=== PATIENT | female | born 1935 | race Caucasian/White ===

== ENCOUNTER 2019-10-22 07:03 | Day surgery (SDC) | payer MEDICARE | END 2019-10-22 23:08 | disposition home or self-care (01) | LOC: MOI US 07:03 | DX: R59.0 Localized enlarged lymph nodes (principal) | CPT/HCPCS: 38505; 76882; 76942; A4648 ==

== ENCOUNTER 2019-11-18 05:48 | Day surgery (SDC) | payer MEDICARE ==
[~2019-11-18] VITALS: Ht 175.3 cm; Wt 91.2 kg
[~2019-11-18 05:48] MED LIST: AMLO5 PO; ATOR20 PO; BACL10 PO; Cymbalta30 MG PO; DOCU100 PO; DONEPEZIL HCL10 MG PO; ELIQUIS5 MG PO; Fosinopril Sodi40 MG PO; HYDCHL12.5 PO; LETR2.5 PO; LEVSOD112 PO; Norco 10-325 T1 EACH PO; OMEP20ER PO; OXYB5 PO; SOTO80 PO; TRAM50 PO; VENL75ER PO; Voltaren100 GM TOP
--- NOTE | 2019-11-18 07:22 | NUR ---
Ambulatory in Day Surgery. History, Chart, Medications and Allergies reviewed before start of procedure.Lungs clear T/O to Auscultation. Patient confirms NPO status and agrees with scheduled surgery. Pre-Op teaching done. Pt verbalizes understanding. Patient States Post-Procedure ride home has been arranged.
--- NOTE | 2019-11-18 10:44 | NUR ---
Discharge instructions reviewed with patient. Patient verbalizes understanding. Copy given to patient to take home. DRG C/D/I TO LEFT AXILLARY WITH GAUZE AND TEGADERM IN PLACE. PT HAS BEEN USING ICE PACK TO SITE. PT DRESSED WITH ASSISTANCE AND TAKEN TO BATHROOM TO VOID. Discharged via wheelchair to private car for ride home. REVIEWED DC INSTRUCTIONS WITH PT DAUGHTER AT VEHICLE.
[2019-11-18 12:17] LABS: Performing Lab SYMBIODX; Test Name FLOW CYTOMETRY
== END 2019-11-18 10:44 | disposition home or self-care (01) ==
LOC: ORSCMMR 05:48 → ORD 07:30 → ORSCMMR 10:44
PROVIDERS: Surgery
PROC: 07B50ZX Excision of Right Axillary Lymphatic, Open Approach, Diagnostic (ICD-10-PCS; principal; 2019-11-18 07:30)
DX: R59.0 Localized enlarged lymph nodes (principal); I48.91 Unspecified atrial fibrillation; E78.5 Hyperlipidemia, unspecified; I10 Essential (primary) hypertension; G47.33 Obstructive sleep apnea (adult) (pediatric); M06.9 Rheumatoid arthritis, unspecified; E66.9 Obesity, unspecified; Z68.31 Body mass index [BMI] 31.0-31.9, adult; Z87.891 Personal history of nicotine dependence; Z79.01 Long term (current) use of anticoagulants; Z79.899 Other long term (current) drug therapy
CPT/HCPCS: 88184; 88185; 88305; 88342; A9270-GY; J0690; J1100; J2405; J2704; J3010; J7120

== ENCOUNTER → 2019-11-30 | Outpatient (CLI) | payer MEDICARE | END | disposition home or self-care (01) | LOC: LAB SHORT 18:56 → LAB 18:56 → LAB FUT 11-29 12:10 → EDSTATUS 11-29 12:10 | DX: J02.9 Acute pharyngitis, unspecified (principal) | CPT/HCPCS: 87081 ==

== ENCOUNTER → 2019-12-16 | Outpatient (CLI) | payer MEDICARE, OTHER ==
[2019-12-16 13:21] LABS: Alanine Aminotransfer (ALT/SGP 60 U/L (12-78); Albumin, Blood 2.6 g/dL (3.4-5.0); Albumin/Globulin Ratio 0.6 (0.8-1.8); Alk Phos 288 U/L (50-136); Anion Gap 9 mmol/L (6-16); Aspartate Aminotrans (AST/SGOT 42 U/L (12-37); Bilirubin, Total 0.3 mg/dL (0.1-1.0); Blood Urea Nitrogen 21 mg/dL (8-24); Bun/Creatinine Ratio 25.6 (12.0-20.0); CO2, Blood 25 mmol/L (21-32); Calcium, Blood 8.5 mg/dL (8.5-10.1); Chloride, Blood 103 mmol/L (98-108); Creatinine, Blood 0.82 mg/dL (0.40-1.00); Globulin, Blood 4.4 g/dL (2.2-4.0); Glomerular Filtration Rate >60 (60-); Glucose, Blood 184 mg/dL (70-99); Potassium, Blood 4.1 mmol/L (3.5-5.5); Sodium, Blood 137 mmol/L (136-145)
== END | disposition home or self-care (01) ==
LOC: LAB SHORT 10:01 → LAB 10:01
PROVIDERS: Internal Medicine Hematology & Oncology
DX: D50.9 Iron deficiency anemia, unspecified (principal); R53.81 Other malaise; R53.83 Other fatigue
CPT/HCPCS: 80053

== ENCOUNTER 2020-10-12 17:50 | Emergency (ER) | payer MEDICARE, OTHER ==
[~2020-10-12] VITALS: Ht 167.6 cm; Wt 88.5 kg
[~2020-10-12 17:50] MED LIST changes: -ATOR20 PO; -Cymbalta30 MG PO; -DONEPEZIL HCL10 MG PO; -ELIQUIS5 MG PO; -Fosinopril Sodi40 MG PO; -HYDCHL12.5 PO; -LETR2.5 PO; -LEVSOD112 PO; -Norco 10-325 T1 EACH PO; -OMEP20ER PO; -SOTO80 PO; -VENL75ER PO; -Voltaren100 GM TOP
[2020-10-12 18:29] LABS: BASOPHILS ABSOLUTE AUTO 0.07 K/mm3 (0.00-0.23); BASOPHILS PERCENT AUTO 1 % (0-2); EOSINOPHILS ABSOLUTE AUTO 0.15 K/mm3 (0.00-0.68); EOSINOPHILS PERCENT AUTO 2 % (0-6); Hematocrit 35.2 % (33.0-51.0); Hemoglobin 10.8 g/dL (11.5-16.0); IMMATURE GRAN ABSOLUTE AUTO 0.03 K/mm3 (0.00-0.10); IMMATURE GRAN PERCENT AUTO 0 % (0-1); LYMPHOCYTES ABSOLUTE AUTO 1.75 K/mm3 (0.84-5.20); LYMPHOCYTES PERCENT AUTO 23 % (21-46); MONOCYTES ABSOLUTE AUTO 0.56 K/mm3 (0.16-1.47); MONOCYTES PERCENT AUTO 8 % (4-13); Mean Corpuscular HGB 28.4 pg (26.0-34.0); Mean Corpuscular HGB Conc 30.7 g/dL (31.5-36.5); Mean Corpuscular Volume 93 fL (80-100); Mean Platelet Volume 9.6 fL (9.1-12.4); NEUTROPHILS ABSOLUTE AUTO 4.94 K/mm3 (1.96-9.15); NEUTROPHILS PERCENT AUTO 66 % (41-73); Platelet Count 300 K/mm3 (150-400); RDW Coefficient Variation 19.7 % (11.7-14.2); RDW Standard Deviation 63.9 fL (35.1-46.3)
[2020-10-12 18:46] LABS: Albumin, Blood 2.9 g/dL (3.4-5.0); Albumin/Globulin Ratio 0.7 (0.8-1.8); Bilirubin, Total 0.5 mg/dL (0.1-1.0); Creatinine, Blood 1.59 mg/dL (0.40-1.00); Globulin, Blood 4.4 g/dL (2.2-4.0); Potassium, Blood 4.6 mmol/L (3.5-5.5); Total Protein, Blood 7.3 g/dL (6.4-8.2)
[2020-10-12] MEDS ORDERED: Kristalose20 GM PO (21:38)
[2020-11-17] MEDS ORDERED: SOTO80 PO ×2 (20:09→20:39)
[2020-11-17] MEDS ORDERED: FURO40 PO (20:28)
[2020-11-17] MEDS ORDERED: KLOR-CON 1010 ME1 PO (20:29)
[2020-11-17] MEDS ORDERED: DULOXETINE HCL40 M1 PO (20:30)
[2020-11-17] MEDS ORDERED: DICLOFENAC SOD100 G1 TOP (20:30)
[2020-11-17] MEDS ORDERED: Norco 10-325 T1 EACH PO (20:31)
[2020-11-17] MEDS ORDERED: EUTHYROX175 MCG PO (20:31)
[2020-11-17] MEDS ORDERED: VENLAFAXINE HC225 MG PO (20:33)
[2020-11-17] MEDS ORDERED: HYDCHL12.5 PO (20:34)
[2020-11-17] MEDS ORDERED: ELIQUIS5 MG PO (20:35)
[2020-11-17] MEDS ORDERED: IBU600 M1 PO (20:35)
[2020-11-17] MEDS ORDERED: Toviaz8 MG PO (20:36)
[2020-11-17] MEDS ORDERED: LETR2.5 PO (20:36)
[2020-11-17] MEDS ORDERED: OMEP20ER PO (20:37)
[2020-11-17] MEDS ORDERED: DONEPEZIL HCL10 MG PO (20:37)
[2020-11-17] MEDS ORDERED: ATOR40TA PO (20:37)
[2020-11-17] MEDS ORDERED: Fosinopril Sodi40 MG PO (20:38)
[2020-11-17] MEDS ORDERED: TRAMADOL HCL E100 MG PO (21:48)
[2020-11-25] MEDS ORDERED: Amiodarone HCl200 MG PO (15:12)
[2020-11-25] MEDS ORDERED: METO25ER PO (15:12)
[2020-11-25] MEDS ORDERED: HYDR1TAB94 PO (15:21)
[2020-11-25] MEDS ORDERED: FURO40 PO (15:26)
== END 2020-10-12 22:15 | disposition home or self-care (01) ==
LOC: ER 17:50
PROVIDERS: Emergency Medicine
DX: K59.09 Other constipation (principal); K64.4 Residual hemorrhoidal skin tags; Z79.01 Long term (current) use of anticoagulants; Z79.899 Other long term (current) drug therapy
CPT/HCPCS: 36415; 74018; 80053; 85025; 99283-25; A9270; J7030

== ENCOUNTER → 2020-12-05 | Outpatient (CLI) | payer MEDICARE, OTHER ==
[~2020-12-05] MED LIST changes: +ATOR40TA PO; +Amiodarone HCl200 MG PO; +DICLOFENAC SOD100 G1 TOP; +DONEPEZIL HCL10 MG PO; +DULOXETINE HCL40 M1 PO; +ELIQUIS5 MG PO; +EUTHYROX175 MCG PO; +FURO40 PO; +Fosinopril Sodi40 MG PO; +HYDCHL12.5 PO; +HYDR1TAB94 PO; +IBU600 M1 PO; +KLOR-CON 1010 ME1 PO; +Kristalose20 GM PO; +LETR2.5 PO; +METO25ER PO; +Norco 10-325 T1 EACH PO; +OMEP20ER PO; +SOTO80 PO; +TRAMADOL HCL E100 MG PO; +Toviaz8 MG PO; +VENLAFAXINE HC225 MG PO
== END ==
LOC: LAB SHORT 17:11 → LAB EV 17:11
DX: N39.0 Urinary tract infection, site not specified (principal)
CPT/HCPCS: 87077; 87086; 87186

== ENCOUNTER 2020-12-11 04:56 | Inpatient (IN) | payer MEDICARE, OTHER ==
[~2020-12-11] VITALS: Ht 170.2 cm; Wt 80.3 kg
[2020-12-11 05:22] LABS: Hematocrit 41.7 % (33.0-51.0); Hemoglobin 12.1 g/dL (11.5-16.0); Mean Corpuscular Volume 93 fL (80-100); Mean Platelet Volume 10.4 fL (9.1-12.4); NRBC ABSOLUTE 0.02 K/mm3 (0.00-0.02); NRBC Auto 0.2 /100 WBC (0.0-0.2); Platelet Count 309 K/mm3 (150-400); RDW Coefficient Variation 17.4 % (11.7-14.2); RDW Standard Deviation 58.7 fL (35.1-46.3); Red Blood Cell Count 4.48 M/mm3 (3.80-5.20); White Blood Cell Count 11.07 K/mm3 (4.00-11.30)
[2020-12-11 05:24] LABS: PCO2 Arterial 20.6 mmHg (35-45); PO2 Arterial 95.8 mmHg (80-100); pH Blood Arterial 7.31 (7.35-7.45)
[2020-12-11 05:42] LABS: Source, Urine Catheter
[2020-12-11 05:51] LABS: Magnesium, Blood 2.3 mg/dL (1.6-2.4); Troponin I 0.024 ng/mL (0.000-0.040)
[2020-12-11 05:55] LABS: Albumin, Blood 2.5 g/dL (3.4-5.0); Albumin/Globulin Ratio 0.5 (0.8-1.8); Bilirubin, Total 0.7 mg/dL (0.1-1.0); Bun/Creatinine Ratio 14.2 (12.0-20.0); Calcium, Blood 8.8 mg/dL (8.5-10.1); Creatinine, Blood 2.46 mg/dL (0.40-1.00); Total Protein, Blood 7.5 g/dL (6.4-8.2)
[2020-12-11 05:57] LABS: Appearance, Urine Clear (Clear); Blood, Urine 1+ (Neg); Color, Urine Amber (P-Yellow); Glucose Qualitative, Urine Neg (Neg); Ketones, Urine 1+ (Neg); Leukocyte Esterase, Urine 1+ (Neg); Nitrite, Urine Neg (Neg); Protein, Urine 1+ (Neg); Specific Gravity, Urine 1.025 (1.003-1.022); Urobilinogen, Urine 1+ (Normal)
[2020-12-11 06:00] LABS: BAND PERCENT MAN 5 % (0-8); BASOPHILS ABSOLUTE MAN 0.33 K/mm3 (0.00-0.23); BASOPHILS PERCENT MAN 3 % (0-2); EOSINOPHILS PERCENT MAN 0 % (0-6); LYMPHOCYTES ABSOLUTE MAN 2.54 K/mm3 (0.84-5.20); LYMPHOCYTES PERCENT MAN 23 % (21-46); MONOCYTES ABSOLUTE MAN 0.44 K/mm3 (0.16-1.47); MONOCYTES PERCENT MAN 4 % (4-13); MYELOCYTE ABSOLUTE MAN 0.11 K/mm3 (0.00-0.00); MYELOCYTE PERCENT MAN 1 % (0-0); NEUTROPHILS ABSOLUTE MAN 7.52 K/mm3 (1.96-9.15); PLASMA CELL ABSOLUTE MAN 0.11 K/mm3 (0.00-0.00); PLASMA CELLS PERCENT MAN 1 % (0-0); SEG NEUTROPHILS PERCENT MAN 63 % (41-73); TOTAL CELLS COUNTED 100
[2020-12-11 06:33] LABS: Bilirubin, Urine 2+ (Neg)
[2020-12-11 06:34] LABS: Bacteria Rare /hpf; Red Blood Cells, Urine 0-2 /hpf (0-2); Squamous Epithelial Cells Rare /hpf (Few); White Blood Cells, Urine 0-2 /hpf (0-5)
[2020-12-11 07:04] LABS: Free Thyroxine 2.05 ng/dL (0.70-1.60)
[2020-12-11 07:06] LABS: Thyroid Stimulating Hormone 1.28 uIU/mL (0.360-4.800); Triiodothyronine, Free 0.85 pg/mL (2.18-3.98)
[2020-12-11 07:07] LABS: SARS-Cov-2 (COVID-19) PCR, MMC Negative (NEGATIVE)
--- NOTE | 2020-12-11 09:00 | NUR ---
PT ADMITTED TO ICU2 FROM ER. UPON ARRIVAL PT'S SBP NOTED TO BE IN 70'S. MONITOR SHOWED PT TO BE IN A-FIB RVR WITH RATES 120'S-130'S. DR MARTINEZ WAS CONSULTED BY HOSPITALIST TEAM FOR CRITICAL CARE. LEVOPHED GTT ORDERED AND STARTED WITH IVF BOLUS. O2 AT 4L VIA NC UPON ARRIVAL. DIFFICULTY GETTING CLEAR SPO2 READING ON MONITOR. PT'S WHOLE LEFT ARM BRUISED. SKIN TEARS NOTED TO LEFT ELBOW AND LEFT HAND, CLEAR DRESSING COVERING SKIN TEARS. RIGHT FEMORAL CENTRAL LINE IN PLACE, BLEEDING AROUND INSERTION SITE. PRESSURE APPLIED TO SITE TO HELP WITH BLEEDING. AGUIRRE IN PLACE WITH VERY LITTLE DARK PAUL URINE. FAMILY AT BEDSIDE WITH PT. PT ORIENTED TO SELF AND FAMILY, FOLLOWS SIMPLE COMMANDS. PT VERY RESTLESS IN BED.
--- NOTE | 2020-12-11 12:00 | NUR ---
REASSESSMENT PT REMAINS RESTLESS/AGITATED IT BED. LEVOPHED INFUSING TO MAINTAIN BP. PRECEDEX INFUSING TO HELP CALM PT. PT WAS C/O ABD DISCOMFORT. AFTER DR MARTINEZ NOTIFIED, ABD CT ORDERED AND OBTAINED. AGUIRRE OUTPUT REMAINS VERY LOW TO NONE. DISCUSSED WITH DR MARTINEZ. CENTRAL LINE DRESSING CHANGED AND PRESSURE APPLIED. CONTINUES TO OOZ BLOOD AT INSERTION SITE. MONITOR SHOWS PT TO BE IN A-FIB RVR.
--- NOTE | 2020-12-11 16:00 | NUR ---
REASSESSMENT PT LESS RESTLESS, MAXED OUT ON PRECEDEX. LEVOPHED AND VASOPRESSIN INFUSING TO MAINTAIN BP. ADDITIONAL SMALL IVF BOLUS GIVEN PER ORDERS. URINARY OUTPUT REMAINS LOW TO NONE. FAMILY AT BEDSIDE. EDUCATED FAMILY ON SEVERITY OF PT'S ILLNESS. SEE FLOWSHEETS FOR MED TITRATIONS.
--- NOTE | 2020-12-11 18:00 | NUR ---
AT 1730 PT'S HR STARTED TO DECREASED FROM 120'S TO LOW 70'S. DR MARTINEZ WAS NOTIFIED AND ARRIVED TO BEDSIDE. DISCUSSED WITH FAMILY POSSIBILITIES OF COMFORT CARE. FAMILY WAS ATTEMPTING TO GET FAMILY TO BEDSIDE THAT WAS FLYING INTO [place]. ORDERS RECEIVED FOR DOPAMINE GTT AND INITIATED. YRIS FROM [facility] NOTIFIED OF PT'S CHANGE AND ARRIVED TO BEDSIDE. PT'S DAUGHTER REMAINS AT BEDSIDE.
[2020-12-11 18:36] LABS: Magnesium, Blood 2.8 mg/dL (1.6-2.4)
[2020-12-11 19:05] LABS: Phosphorus, Blood 8.7 mg/dL (2.5-4.9); Potassium, Blood 5.4 mmol/L (3.5-5.5); Troponin I 0.63 ng/mL (0.000-0.040)
--- NOTE | 2020-12-11 19:06 | NUR ---
Spiritual care note: Present with this family throughout the day. Provided gentle budget counselor, education, and spiritual direction to good effect. I was with dtrCourtney, at bedside at [facility]. Prayer provided. More family arriving throughout the next couple hours. Courtney tearful, but appropriate. [place] passed peacefully thanks to great nursing care and attention. [employer] services will remain available.
--- NOTE | 2020-12-11 19:30 | NUR ---
CARE ASSUMED PT PASSED BEFORE SHIFT CHANGE. TOD 1899. FAMILY AT BEDSIDE. AWAITING OTHER FAMILY TO ARRIVE. CONTINUE TO ASSIST FAMILY NEEDED.
--- NOTE | 2020-12-11 19:49 | NUR ---
DR MARTINEZ CALLED TIME OF AT 1900. ALL GTTS STOPPED. FAMILY AT BEDSIDE WHILE PT PASSED. TEREASA FROM [facility] AT BEDSIDE. DONNA, 2ND YEAR CASE MANAGERS WORKED WITH PRIMARY RN TODAY. ALL CHARTING DONE BY STUDENT REVIEWED AND VERIFIED BY PRIMARY RN. PRIMARY RN WITH STUDENT WHEN MEDICATIONS WERE ADMINISTERED.
== END 2020-12-11 19:00 | DRG 871 ==
LOC: ER 04:56 → ICUW 07:32 → ICUE 08:25
PROVIDERS: Emergency Medicine; Internal Medicine Critical Care Medicine; ADMIT Family Medicine
PROC: 06HY33Z Insertion of Infusion Device into Lower Vein, Percutaneous Approach (ICD-10-PCS; principal; 2020-12-11)
PROC: 3E033XZ Introduction of Vasopressor into Peripheral Vein, Percutaneous Approach (ICD-10-PCS; 2020-12-11)
DX: A41.02 Sepsis due to Methicillin resistant Staphylococcus aureus (principal); R65.21 Severe sepsis with septic shock; G92 Toxic encephalopathy; J69.0 Pneumonitis due to inhalation of food and vomit; N17.9 Acute kidney failure, unspecified; N39.0 Urinary tract infection, site not specified; E87.2 Acidosis; I50.42 Chronic combined systolic (congestive) and diastolic (congestive) heart failure; Z20.822 Contact with and (suspected) exposure to COVID-19; A41.81 Sepsis due to Enterococcus; I48.91 Unspecified atrial fibrillation; Z66 Do not resuscitate; Z51.5 Encounter for palliative care; Z91.048 Other nonmedicinal substance allergy status; Z85.3 Personal history of malignant neoplasm of breast; K59.00 Constipation, unspecified; E03.9 Hypothyroidism, unspecified; I11.0 Hypertensive heart disease with heart failure; M06.9 Rheumatoid arthritis, unspecified; Z96.653 Presence of artificial knee joint, bilateral; Z98.890 Other specified postprocedural states; G47.30 Sleep apnea, unspecified; Z79.899 Other long term (current) drug therapy; N18.30 Chronic kidney disease, stage 3 unspecified; Z87.891 Personal history of nicotine dependence
CPT/HCPCS: 36415; 36556; 36600; 51702; 70450; 71045; 72125; 74176; 80053; 81001; 82803; 83605; 83735; 83880; 84100; 84132; 84439; 84443; 84481; 84484; 85025; 87040; 87086; 93005; 93010; 96365-59; 96367-59; 99285-25; A9270; C1751; C8929; J0295; J1265; J2543; J3010; J3370; J7030; J7040; J7050; J7060; Q9957; U0004